=== PATIENT | female | born 1950 | race American Indian/Alaskan Native ===

== ENCOUNTER 2016-06-20 13:49 | Outpatient (CLI) | payer BC ==
--- NOTE | 2016-06-21 13:16 | PET Report ---
PET/CT:06/20/16 13:49:00 CLINICAL: Renal cancer and colon cancer restaging. RADIOPHARMACEUTICAL: 13.76mCi F18-FDG. COMPARISON: CT abdomen and pelvis without contrast 11/30/10 TECHNIQUE- Following intravenous injection of F-18 FDG and an approximately 60 minute uptake period, CT and PET images from the mid skull to the upper thighs were acquired with the patient in the fasted state. No contrast was administered. The CT protocol used for this PET CT study is designed for attenuation correction and anatomic localization of PET abnormalities. This warehouse unloader CT is not desired to produce and cannot replace, [id number]-cl-lkj-art diagnostic CT scans with specific imaging protocols for different body parts and indications. Plasma glucose at the time of this test: 93g/dl. The standardized uptake values (SUV) are normalized to patient body weight and indicate the highest activity concentration (SUV max) in a given disease site. FINDINGS: Brain--Physiologic FDG uptake in the visualized regions of the brain. Neck--Physiologic FDG uptake . Chest--Physiologic FDG uptake in mediastinal blood pool and myocardium. Lungs--No abnormal uptake. No pulmonary nodule or mass. Pleura/pericardium--No abnormal uptake. Thoracic nodes--No abnormal uptake. Hepatobiliary--No abnormal uptake. Liver background SUV mean, as a reference for comparing FDG studies, is 4.2 . No liver mass. Spleen--No abnormal uptake. Pancreas--No abnormal uptake. Adrenal Glands--A hypodense 2.5 x 2.4 cm right adrenal mass measures 20 Hounsfield units in density with SUV 3.25. It measured 2.3 x 1.3 cm on the last exam. Kidneys/Ureters/Bladder--No abnormal uptake. Status post left nephrectomy Abdominopelvic Nodes--No abnormal uptake. Bowel/Peritoneum/Mesentery--No abnormal uptake. Diverticulosis of the left colon and sigmoid colon. No diverticulitis. Pelvic organs--No abnormal uptake. Enlarged fibroid uterus. Bones/Soft Tissues--No abnormal uptake. No bone lesions. IMPRESSION- 1. A 2.5 cm benign right adrenal adenoma. 2. No evidence of disease recurrence or metastasis. 3. Diverticulosis but no diverticulitis. 4. Uterine leiomyomata.
== END 2016-06-20 13:50 | disposition home or self-care (01) ==
LOC: PET 13:49
PROVIDERS: ATTEND Internal Medicine Gastroenterology
DX: D35.01 Benign neoplasm of right adrenal gland (principal); C18.9 Malignant neoplasm of colon, unspecified; D25.9 Leiomyoma of uterus, unspecified; K57.30 Diverticulosis of large intestine without perforation or abscess without bleeding; N85.2 Hypertrophy of uterus; Q63.9 Congenital malformation of kidney, unspecified; E27.8 Other specified disorders of adrenal gland; Z85.528 Personal history of other malignant neoplasm of kidney; Z90.5 Acquired absence of kidney
CPT/HCPCS: 78815; 82962; A9552